=== PATIENT | female | born 1960 | race Caucasian/White ===

== ENCOUNTER 2018-08-28 19:33 | Emergency (ER) | payer OTHER ==
[2018-08-28] MEDS ORDERED: ACETAMINOPHEN W/COD #3 TAB 1 EA TAB PO ONE (19:54)
[2018-08-28] MEDS ORDERED: ACETAMINOPHEN W/COD #3 TAB 1 EA TAB ONE (19:55)
--- NOTE | 2018-08-28 19:57 | ED.PDOC ---
History of Present Illness - General Chief Complaint: Upper Extremity Injury Stated Complaint: i think i broke my wrist when I fell Time Seen by Provider: 08/28/18 19:55 Source: patient - History of Present Illness Initial Comments: FELL ON AN OUTSTRETCHED HAND, NO C/O PAINFUL LEFT WRIST. Occurred: just prior to arrival Pain - Upper Extremity: severe: Wrist, left Method of Injury: fell Improving Factors: nothing Worsening Factors: movement Allergies/Adverse Reactions: Allergies NO KNOWN ALLERGY Allergy (Unverified 05/18/13 09:18) Home Medications: Ambulatory Orders Escitalopram Oxalate [Lexapro] 5 mg PO DAILY 05/18/13 Aspirin 81 mg PO DAILY 08/17/13 Lisinopril 10 mg PO 08/17/13 Acetaminophen W/ Codeine [Tylenol W/ CODEINE #3] 1 ea PO Q6HRS #24 08/28/18 Review of Systems - Review of Systems Constitutional: States: no symptoms reported EENTM: States: no symptoms reported Respiratory: States: no symptoms reported Cardiology: States: no symptoms reported Gastrointestinal/Abdominal: States: no symptoms reported Genitourinary: States: no symptoms reported Musculoskeletal: States: joint pain, joint swelling Skin: States: no symptoms reported Neurological: States: no symptoms reported Endocrine: States: no symptoms reported Hematologic/Lymphatic: States: no symptoms reported Past Medical History (General) - Patient Medical History Hx Congestive Heart Failure: No Hx Diabetes: No Physical Exam - Physical Exam General Appearance: Alert, Anxious, Obvious distress, Well Developed, Well Groomed, Well Hydrated Eyes, Ears, Nose, Throat Exam: PERRL/EOMI, normal ENT inspection Neck: non-tender, full range of motion, supple Cardiovascular/Respiratory: regular rate, rhythm, no M/R/G, normal peripheral pulses, no JVD, normal breath sounds Abdominal Exam: non-tender Back Exam: normal inspection Shoulder Exam: normal inspection Elbow/Forearm Exam: normal inspection Wrist Exam: asymmetry, deformity, soft tissue tenderness Hand Exam: normal inspection Mental Status: alert, oriented x 3 Skin Exam: normal color Progress - Results/Orders Results/Orders: X-RAYS OF THE LWEFT WRIST REVEAL A COMMINUTED INTRA-ARTICULAR FRACTURE OF THE DISTAL RADIUS AND A MINIMALLY DISPLACED FRACTURE OF THE STYLOID PROCESS OF THE DISTAL ULNA Departure - Departure Clinical Impression: Fracture of radius, distal, left, closed Qualifiers: Encounter type: initial encounter Fracture morphology: other intra-articular Qualified Code(s): S52.572A - Other intraarticular fracture of lower end of left radius, initial encounter for closed fracture Time of Disposition: 20:34 Disposition: Discharge to Home or Self Care Condition: Good Departure Forms: ED Discharge - Pt. Copy, Patient Portal Self Enrollment Instructions: Wrist Fracture (DC) Diet: resume usual diet Referrals: Romulo Overton MD [Primary Care Provider] - 1-2 Weeks David Bueno MD [Active Staff] - 1-2 Weeks Prescriptions: Acetaminophen W/ Codeine [Tylenol W/ CODEINE #3] 1 ea PO Q6HRS #24 Home Medications: Ambulatory Orders Escitalopram Oxalate [Lexapro] 5 mg PO DAILY 05/18/13 Aspirin 81 mg PO DAILY 08/17/13 Lisinopril 10 mg PO 08/17/13 Acetaminophen W/ Codeine [Tylenol W/ CODEINE #3] 1 ea PO Q6HRS #24 08/28/18
[2018-08-28 20:04] VITALS: O2SAT 100
--- NOTE | 2018-08-28 20:12 | RAD ---
EXAM DESCRIPTION: Wrist,Left 3 Views CLINICAL HISTORY: 58 years Female, pain, deformity COMPARISON: April 13, 2013 FINDINGS: Left wrist 3 views Comminuted, intraarticular fracture through the distal radius with mild posterior angulation. Minimally displaced fracture through the ulnar styloid. Electronically signed by: Ronald William MD 08/28/2018 8:11 PM CDT
[2018-08-28] MEDS ORDERED: ACETAMINOPHEN W/COD #3 TAB (ER Disp) PO ONE (20:47)
[2018-08-28 21:03] VITALS: BP 134/94; TEMP 98.9
== END 2018-08-28 20:57 | disposition home or self-care (01) ==
LOC: ER 19:33
DX: S52.572A Other intraarticular fracture of lower end of left radius, initial encounter for closed fracture (principal); S52.512A Displaced fracture of left radial styloid process, initial encounter for closed fracture; Z79.82 Long term (current) use of aspirin; W18.39XA Other fall on same level, initial encounter; Y92.9 Unspecified place or not applicable

== ENCOUNTER → 2018-09-05 | Outpatient (CLI) | payer OTHER ==
--- NOTE | 2018-09-05 09:35 | RAD ---
Three-view left wrist Indication: CLOSED FRACTURE OF DISTAL END OF RADIUS Comparison: August 28, 2018 Impression: Comminuted intra-articular distal radial fracture redemonstrated with slightly improved alignment. No significant progressive union identified. Previously noted fracture at the base of the ulnar styloid is redemonstrated with stable alignment. Casting material present. No new fracture. Electronically signed by: Michael Hamm MD 09/05/2018 9:34 AM CDT
== END ==
LOC: RAD 09:00
PROVIDERS: ATTEND Orthopaedic Surgery
DX: S52.502D Unspecified fracture of the lower end of left radius, subsequent encounter for closed fracture with routine healing (principal)

== ENCOUNTER → 2018-09-15 | Outpatient (CLI) | payer OTHER ==
--- NOTE | 2018-09-15 09:13 | RAD ---
EXAM DESCRIPTION: Wrist,Left 3 Views CLINICAL HISTORY: 58 years Female, UNSPECIFIED FRACTURE COMPARISON: Sep 05, 2018 FINDINGS: Comminuted fracture of the distal radius with intra-articular extension. Overlying orthopedic cast limits bony detail. IMPRESSION: Comminuted fracture of the distal radius with intra-articular extension. Overlying orthopedic cast limits bony detail. Electronically signed by: Benja Walton MD 09/15/2018 9:11 AM [facility]
== END ==
LOC: RAD 08:01
PROVIDERS: ATTEND Orthopaedic Surgery
DX: S52.502D Unspecified fracture of the lower end of left radius, subsequent encounter for closed fracture with routine healing (principal)

== ENCOUNTER → 2018-09-22 | Outpatient (CLI) | payer OTHER ==
--- NOTE | 2018-09-22 10:12 | RAD ---
Three-view left wrist Indication: CLOSED FRACTURE OF DISTAL END OF RADIUS Comparison: September 15, 2018 Impression: The comminuted fracture distal radius with intra-articular extension redemonstrated with stable alignment. Mild progressive sclerosis at the fracture but without complete union. No definite new fracture. Casting material present. Electronically signed by: Michael Hamm MD 09/22/2018 10:10 AM [facility]
== END ==
LOC: RAD 07:52
PROVIDERS: ATTEND Orthopaedic Surgery
DX: S52.502D Unspecified fracture of the lower end of left radius, subsequent encounter for closed fracture with routine healing (principal)

== ENCOUNTER → 2018-10-13 | Outpatient (CLI) | payer OTHER ==
--- NOTE | 2018-10-13 09:35 | RAD ---
EXAM DESCRIPTION: Wrist,Left 3 Views CLINICAL HISTORY: 58 years Female, UNSPECIFIED FRACTURE OF THE LOWER END OF LEFT RADIUS COMPARISON: Radiographs dated September 22, 2018. FINDINGS: The visualized bones are well-mineralized. Healing fractures of the distal radius and ulnar styloid process are noted. The soft tissues appear grossly unremarkable. IMPRESSION: Healing fractures of the distal radius and ulnar styloid process are noted. Electronically signed by: Tamera Pereira MD 10/13/2018 9:33 AM [facility]
== END ==
LOC: RAD 07:42
PROVIDERS: ATTEND Orthopaedic Surgery
DX: S52.502D Unspecified fracture of the lower end of left radius, subsequent encounter for closed fracture with routine healing (principal)

== ENCOUNTER → 2018-11-13 | Outpatient (CLI) | payer OTHER ==
--- NOTE | 2018-11-13 08:39 | RAD ---
EXAM DESCRIPTION: Wrist,Left 3 Views CLINICAL HISTORY: 58 years, Female, CLOSED FRACTURE OF DISTAL END OF RADIUS LEFT COMPARISON: None FINDINGS: Left wrist 3 x-ray views shows healing fractures distal radius. Small ulnar styloid avulsion is stable. Mild impaction and dorsal angulation of the distal left radius is seen. Increased sclerosis at the fracture line suggests bridging callus formation. No change in alignment. Carpal relationships are well-maintained. Arthritic changes are seen in the lateral carpus at the first carpal metacarpal joint. IMPRESSION: Healing fractures of distal left radius and ulnar styloid. Electronically signed by: Vazquez Ballesteros MD 11/13/2018 8:38 AM [facility]
== END ==
LOC: RAD 07:45
PROVIDERS: ATTEND Orthopaedic Surgery
DX: S52.502D Unspecified fracture of the lower end of left radius, subsequent encounter for closed fracture with routine healing (principal); S52.612D Displaced fracture of left ulna styloid process, subsequent encounter for closed fracture with routine healing

== ENCOUNTER 2020-12-19 08:26 | Emergency (ER) | payer BC, OTHER ==
--- NOTE | 2020-12-19 09:28 | RAD ---
EXAM DESCRIPTION: Chest,1 View CLINICAL HISTORY: 60 years Female, sob, Covid+ COMPARISON: None. TECHNIQUE: AP portable chest. FINDINGS: Heart size is large with increased pulmonary vascularity. Patchy infiltrate in the lingula and in both lung bases. Apices appear clear. No pulmonary mass or worrisome nodule. No pneumothorax or pleural effusion. Bones are unremarkable. IMPRESSION: Large heart with increased vascularity. Patchy bilateral pulmonary infiltrates. Electronically signed by: Vazquez Ballesteros MD 12/19/2020 9:[address] [facility]
--- NOTE | 2020-12-19 10:02 | ED.PDOC ---
History of Present Illness - General Chief Complaint: Respiratory Problem Stated Complaint: COVID + Time Seen by Provider: 12/19/20 08:53 Source: patient, RN notes reviewed, Vital Signs reviewed Exam Limitations: no limitations - History of Present Illness Initial Comments: Patient is a 60-year-old white female who presents with complaints of generalized body aches, intermittent fever, intermittent cough that is minimally productive for clear sputum, shortness of breath. She was diagnosed with Covid on Saturday. The symptoms have progressively worsened over the last 4 days. Nothing makes her symptoms better. They are worse when she is up exerting herself. She has noticed that intermittently her oxygen saturation level dropped to 88%. On arrival here she was 96% on room air. Her symptoms are of moderate intensity. Timing/Duration: 1 week, constant, getting worse Severity: moderate Improving Factors: nothing Worsening Factors: movement Associated Symptoms: cough, fever/chills, malaise, shortness of breath, weakness Allergies/Adverse Reactions: Allergies NO KNOWN ALLERGY Allergy (Verified 12/19/20 08:46) Home Medications: Ambulatory Orders Escitalopram Oxalate [Lexapro] 5 mg PO DAILY 05/18/13 Aspirin 81 mg PO DAILY 08/17/13 Lisinopril 10 mg PO 08/17/13 Atorvastatin Calcium PO DAILY 12/19/20 Review of Systems - Review of Systems Constitutional: States: see HPI, chills, fever, malaise, weakness EENTM: States: no symptoms reported. Denies: eye pain, blurred vision, double vision Respiratory: States: see HPI, cough, short of breath. Denies: stridor, wheezing Cardiology: States: no symptoms reported. Denies: chest pain, palpitations, syncope Gastrointestinal/Abdominal: States: no symptoms reported. Denies: abdominal pain, constipation, diarrhea, nausea, vomiting Genitourinary: States: no symptoms reported. Denies: dysuria, frequency Musculoskeletal: States: no symptoms reported. Denies: back pain, joint pain, neck pain Skin: States: no symptoms reported. Denies: change in color, rash Neurological: States: see HPI, weakness. Denies: headache, numbness, paresthesia, tingling, tremors Endocrine: States: no symptoms reported. Denies: increased hunger, increased thirst, increased urine Hematologic/Lymphatic: States: no symptoms reported. Denies: blood clots, easy bleeding All other Systems: Reviewed and Negative Past Medical History (General) - Patient Medical History Hx Seizures: No Hx Stroke: No Hx Dementia: No Hx Asthma: No Hx of COPD: No Hx Cardiac Disorders: No Hx Congestive Heart Failure: No Hx Pacemaker: No Hx Hypertension: Yes Hx Thyroid Disease: No Hx Diabetes: No Hx Gastroesophageal Reflux: No Hx Renal Disease: No Hx Cancer: No Hx of HIV: No Hx Hepatitis C: No Hx MRSA: No Surgical History: no surgical history - Vaccination History Hx Tetanus, Diphtheria Vaccination: No Hx Influenza Vaccination: No Hx Pneumococcal Vaccination: Yes - Social History Hx Tobacco Use: No Hx Alcohol Use: No Hx Substance Use: No Hx Substance Use Treatment: No Hx Depression: No Hx Physical Abuse: No Hx Emotional Abuse: No Hx Suspected Abuse: No - Activities of Daily Living Hospice Agency (if applicable):: None - Female History Patient is a Female of Child Bearing Age (10 -59 yrs old): No Family Medical History - Family History Maternal Family History: Unknown Physical Exam - Physical Exam General Appearance: Alert, Anxious, Obvious distress, Well Developed, Well Groomed, Well Hydrated, Well Nourished Eye Exam: bilateral normal Ears, Nose, Throat: hearing grossly normal, normal ENT inspection, normal pharynx Neck: non-tender, full range of motion, supple Respiratory: chest non-tender, no accessory muscle use, respiratory distress - mild, decreased breath sounds, crackles - in bases bilaterally Cardiovascular/Chest: normal peripheral pulses, regular rate, rhythm, no edema, no gallop, no JVD, no murmur Peripheral Pulses: radial,right: 2+, radial,left: 2+ Gastrointestinal/Abdominal: normal bowel sounds, non tender, soft Back Exam: normal inspection, no CVA tenderness, no vertebral tenderness Extremity: normal range of motion, non-tender, normal inspection, no pedal edema 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 12/19/20 10:05 Patient with worsening Covid symptoms. She does not meet criteria for admission at this time. Her D-dimer is up and so I will obtain a CTA of the chest to evaluate for PE. I discussed this with the patient she voices understanding and agreement with current plan of care. 12/19/20 11:11 Patient undergoing monoclonal antibody infusion at this time. I did discuss the plan of care with patient and her PCP, Dr. Dawn who agreed this seemed like a reasonable alternative to admission as patient does not meet criteria. - Results/Orders Results/Orders: EKG performed 19 December 2020 at 0859 hrs.: Normal sinus rhythm at 82 bpm, normal axis deviation, no ST or T wave changes concerning for acute ischemia, normal EKG. No comparison EKG available at this time. EXAM DESCRIPTION: Chest,1 View CLINICAL HISTORY: 60 years Female, sob, Covid+ COMPARISON: None. TECHNIQUE: AP portable chest. FINDINGS: Heart size is large with increased pulmonary vascularity. Patchy infiltrate in the lingula and in both lung bases. Apices appear clear. No pulmonary mass or worrisome nodule. No pneumothorax or pleural effusion. Bones are unremarkable. IMPRESSION: Large heart with increased vascularity. Patchy bilateral pulmonary infiltrates. Electronically signed by: Vazquez Ballesteros MD 12/19/2020 9:26 AM 12/19/20 08:54 EKG Assessment ONCE 12/19/20 09:00 EKG STAT Pulse Ox, Continuous Monitoring STAT 12/20/20 09:00 Pulse Ox, Continuous Monitoring STAT 12/21/20 09:00 Pulse Ox, Continuous Monitoring STAT Laboratory Results - last 24 hr 12/19/20 12/19/20 12/19/20 09:05 09:05 09:05 WBC 4.8 RBC 4.35 Hgb 13.2 Hct 38.4 MCV 88.3 MCH 30.3 MCHC 34.3 RDW 13.4 Plt Count 198 MPV 8.8 Absolute Neuts (auto) 3.70 Absolute Lymphs (auto) 0.70 L Absolute Monos (auto) 0.30 Absolute Eos (auto) 0.00 Absolute Basos (auto) 0.00 Neutrophils % 78.5 H Lymphocytes % 15.6 L Monocytes % 5.6 Eosinophils % 0.0 L Basophils % 0.3 PTT (SP) 28.5 D-Dimer, Quantitative 906.0 H* Sodium 134 L Potassium 3.9 Chloride 100 L Carbon Dioxide 22 Anion Gap 15.9 BUN 18 Creatinine 0.70 BUN/Creatinine Ratio 25.7 H Random Glucose 96 Serum Osmolality 270.0 L Calcium 9.1 Magnesium 1.9 Total Bilirubin 0.6 AST 32 ALT 21 Alkaline Phosphatase 54 LD Total 195 H Creatine Kinase 27 Troponin I C-Reactive Protein 7.5 H B-Natriuretic Peptide < 5.0 Serum Total Protein 7.1 Albumin 3.8 Globulin 3.3 Albumin/Globulin Ratio 1.2 12/19/20 09:05 WBC RBC Hgb Hct MCV MCH MCHC RDW Plt Count MPV Absolute Neuts (auto) Absolute Lymphs (auto) Absolute Monos (auto) Absolute Eos (auto) Absolute Basos (auto) Neutrophils % Lymphocytes % Monocytes % Eosinophils % Basophils % PTT (SP) D-Dimer, Quantitative Sodium Potassium Chloride Carbon Dioxide Anion Gap BUN Creatinine BUN/Creatinine Ratio Random Glucose Serum Osmolality Calcium Magnesium Total Bilirubin AST ALT Alkaline Phosphatase LD Total Creatine Kinase Troponin I < 0.02 C-Reactive Protein B-Natriuretic Peptide Serum Total Protein Albumin Globulin Albumin/Globulin Ratio Vital Signs 12/19/20 12/19/20 08:30 08:40 Temperature 97.9 F Pulse Rate [ 84 84 pulse ox] Respiratory 18 18 Rate Blood Pressure 109/64 [Left Arm] O2 Sat by Pulse 95 Oximetry EXAM DESCRIPTION: CTA Chest CLINICAL HISTORY: Worsening dyspnea with Covid/+ddimer COMPARISON: None. TECHNIQUE: Postcontrast CT images of the chest are obtained using pulmonary embolism imaging protocol. Three-D MIP reconstructed images of the arterial vasculature are obtained. Coronal and sagittal reconstructed images of the also provided. This exam was performed according to our departmental dose-optimization program, which includes automated exposure control, adjustment of the mA and/or kV according to patient size and/or use of iterative reconstruction technique . FINDINGS: Heart is mildly enlarged. Mild dilatation of the ascending thoracic aorta measures 3.9 cm. Calcified and noncalcified plaque at the origin of the left subclavian artery contributes to mild stenosis. No thoracic aortic dissection. No filling defects or emboli are seen in the pulmonary arteries. Mildly prominent lymph nodes in the mediastinal and hilar regions are seen measuring maximum 10 mm. No pleural or pericardial effusion. Visualized portion of the upper abdomen shows fluid attenuation cortical cyst upper pole left kidney measuring 1.8 cm. Small hiatal hernia suspected. Lungs are hypoaerated. Patchy areas of interstitial and alveolar airspace consolidation are seen mainly in the lower lobes bilaterally. Mild scattered focal areas of interstitial thickening and groundglass attenuation are seen in the upper lobes. Osseous structures show no aggressive bony lesions. Mild disc degenerative changes of the spine and scoliosis of the spine. IMPRESSION: No CT evidence of pulmonary embolism. Bilateral pulmonary air space infiltrates are seen most prominent in the bilateral lower lobes compatible with bilateral pneumonia. Continued follow-up until resolution to exclude neoplastic process is recommended. Mild mediastinal and hilar lymphadenopathy is likely reactive. Electronically signed by: Jeancarlos Avery MD 12/19/2020 10:46 AM [facility] Departure - Departure Clinical Impression: COVID-19, Viral respiratory illness Dyspnea Qualifiers: Dyspnea type: acute respiratory distress Qualified Code(s): R06.03 - Acute respiratory distress Time of Disposition: 11:14 Disposition: Discharge to Home or Self Care Condition: Fair Departure Forms: ED Discharge - Pt. Copy, Patient Portal Self Enrollment Instructions: Coronavirus Disease 2019 (COVID-19) (DC), Bamlanivimab FDA Fact Sheet Diet: resume usual diet Activity: increase activity as tolerated Referrals: SHAED DAWN MD [Primary Care Provider] - 1-5 Days Home Medications: Ambulatory Orders Escitalopram Oxalate [Lexapro] 5 mg PO DAILY 05/18/13 Aspirin 81 mg PO DAILY 08/17/13 Lisinopril 10 mg PO 08/17/13 Atorvastatin Calcium PO DAILY 12/19/20
[2020-12-19] MEDS ORDERED: SODIUM CHLORIDE 0.9% 250ML 250 ML ONE (10:34)
--- NOTE | 2020-12-19 10:47 | CT ---
EXAM DESCRIPTION: CTA Chest CLINICAL HISTORY: Worsening dyspnea with Covid/+ddimer COMPARISON: None. TECHNIQUE: Postcontrast CT images of the chest are obtained using pulmonary embolism imaging protocol. Three-D MIP reconstructed images of the arterial vasculature are obtained. Coronal and sagittal reconstructed images of the also provided. This exam was performed according to our departmental dose-optimization program, which includes automated exposure control, adjustment of the mA and/or kV according to patient size and/or use of iterative reconstruction technique . FINDINGS: Heart is mildly enlarged. Mild dilatation of the ascending thoracic aorta measures 3.9 cm. Calcified and noncalcified plaque at the origin of the left subclavian artery contributes to mild stenosis. No thoracic aortic dissection. No filling defects or emboli are seen in the pulmonary arteries. Mildly prominent lymph nodes in the mediastinal and hilar regions are seen measuring maximum 10 mm. No pleural or pericardial effusion. Visualized portion of the upper abdomen shows fluid attenuation cortical cyst upper pole left kidney measuring 1.8 cm. Small hiatal hernia suspected. Lungs are hypoaerated. Patchy areas of interstitial and alveolar airspace consolidation are seen mainly in the lower lobes bilaterally. Mild scattered focal areas of interstitial thickening and groundglass attenuation are seen in the upper lobes. Osseous structures show no aggressive bony lesions. Mild disc degenerative changes of the spine and scoliosis of the spine. IMPRESSION: No CT evidence of pulmonary embolism. Bilateral pulmonary air space infiltrates are seen most prominent in the bilateral lower lobes compatible with bilateral pneumonia. Continued follow-up until resolution to exclude neoplastic process is recommended. Mild mediastinal and hilar lymphadenopathy is likely reactive. Electronically signed by: Jeancarlos Avery MD 12/19/2020 10:46 AM [facility] [employer]
[2020-12-19 12:50] VITALS: BP 145/82; TEMP 98; O2SAT 96
== END 2020-12-19 12:49 | disposition home or self-care (01) ==
LOC: ER 08:26
DX: U07.1 COVID-19 (principal); I10 Essential (primary) hypertension; Z79.82 Long term (current) use of aspirin; Z79.899 Other long term (current) drug therapy
CPT/HCPCS: 36415; 71045; 71275; 80053; 82550; 83615; 83735; 83880; 84484; 85025; 85379; 85730; 86140; 93005; J7050